=== PATIENT | male | born 1965 | race Caucasian/White ===

== ENCOUNTER 2017-02-16 14:04 | Inpatient (IN) | payer BC, MEDICAID ==
[~2017-02-16] VITALS: Ht 182.9 cm; Wt 155.0 kg
[2017-02-16] MEDS ORDERED: ASPI1TAB PO (14:20)
[2017-02-16 15:38] LABS: MEAN CORPUSCULAR HEMOGLOBIN 31.1 pg (27.0-33.0); MEAN CORPUSCULAR HGB CONC 36.1 g/dl (32.0-36.5); MEAN CORPUSCULAR VOLUME 86.2 fl (80.0-96.0); RED CELL DISTRIBUTION WIDTH 13.6 % (11.5-14.5)
[2017-02-16 16:12] LABS: ALBUMIN 3.7 GM/DL (3.2-5.2); ALBUMIN/GLOBULIN RATIO 1.16 (1.00-1.93); ALKALINE PHOSPHATASE 120 U/L (45-117); ALT/SGPT 36 U/L (12-78); ANION GAP 10 MEQ/L (8-16); AST/SGOT 21 U/L (15-37); BILIRUBIN,DIRECT 0.2 MG/DL (0.0-0.2); BILIRUBIN,TOTAL 0.8 MG/DL (0.2-1.0); BLOOD UREA NITROGEN 18 MG/DL (7-18); CARBON DIOXIDE LEVEL 24 MEQ/L (21-32); CHLORIDE LEVEL 105 MEQ/L (98-107); CREATININE FOR GFR 1.05 MG/DL (0.70-1.30); GLOMERULAR FILTRATION RATE > 60.0 (>56); GLUCOSE, FASTING 89 MG/DL (70-105); POTASSIUM SERUM 3.9 MEQ/L (3.5-5.1); SODIUM LEVEL 139 MEQ/L (136-145); TOTAL PROTEIN 6.9 GM/DL (6.4-8.2)
[2017-02-16] MEDS ORDERED: HYDR25TAB PO (16:41)
[2017-02-16] MEDS ORDERED: LISI40TAB PO (16:41)
[2017-02-16] MEDS ORDERED: ATOR40TA PO (16:41)
[2017-02-16] MEDS ORDERED: BUPR75TA5 PO (16:41)
[2017-02-16] MEDS ORDERED: FLOM5CAP PO (16:41)
[2017-02-16 16:54] LABS: METHADONE URINE NEGATIVE (NEGATIVE)
[2017-02-16] MEDS ORDERED: BUPR150T3 PO (17:41)
[2017-02-16] MEDS ORDERED: ZYRT10TA2 PO (17:41)
[2017-02-16] MEDS ORDERED: ACETAMINOPHEN 325 MG TAB PO ONE (18:30)
[2017-02-16] MEDS ORDERED: OLANZapine ORAL DISINTEGRATING TAB 5MG PO PRN (19:15)
[2017-02-16] MEDS ORDERED: traZODone 50 MG TAB PO PRN (19:15)
[2017-02-16] MEDS ORDERED: ACETAMINOPHEN TAB 650MG DOSE (2X325MG) PO PRN (19:15)
[2017-02-16] MEDS ORDERED: MOM 30ML SUSPENSION UDC PO PRN (19:15)
[2017-02-16] MEDS ORDERED: MAALOX 30 ML SUSP *UDC PO PRN (19:15)
[2017-02-16] MEDS ORDERED: LISINOPRIL 40 MG TAB PO ONE (19:45)
[2017-02-16 20:35] VITALS: BP 150/98
[2017-02-16] MEDS ORDERED: CETIRIZINE (ZyrTEC) 10 MG TAB PO PRN (21:30)
[2017-02-17 06:17] VITALS: BP 142/69
[2017-02-17] MEDS ORDERED: buPROPion **XL** TABLET 150MG (WELLBUTRIN XL) PO SCH (09:00)
[2017-02-17] MEDS ORDERED: NAPROXEN 250 MG TAB PO PRN (09:15)
[2017-02-17] MEDS: hydroCHLOROthiazide 25 MG TAB PO SCH (09:56)
[2017-02-17] MEDS: LISINOPRIL 40 MG TAB PO SCH (09:56)
[2017-02-17] MEDS: TAMSULOSIN 0.4 MG CAP PO SCH (09:56)
[2017-02-17] MEDS: ASPIRIN 81 MG ENTERIC TAB PO SCH (09:56)
[2017-02-17] MEDS: ATORVASTATIN 20 MG TAB PO SCH (09:56)
[2017-02-17] MEDS: SERTRALINE HCL 50 MG TAB PO SCH (13:09)
[2017-02-17 18:35] VITALS: BP 120/56
[2017-02-18 06:27] VITALS: BP 143/80
[2017-02-18] MEDS: TAMSULOSIN 0.4 MG CAP PO SCH (08:46)
[2017-02-18] MEDS: ATORVASTATIN 20 MG TAB PO SCH (08:46)
[2017-02-18] MEDS: ASPIRIN 81 MG ENTERIC TAB PO SCH (08:46)
[2017-02-18] MEDS: SERTRALINE HCL 50 MG TAB PO SCH (08:46)
[2017-02-18] MEDS: hydroCHLOROthiazide 25 MG TAB PO SCH (08:46)
[2017-02-18 08:48] VITALS: BP 106/53
[2017-02-18] MEDS: LISINOPRIL 40 MG TAB PO SCH (08:48)
[2017-02-18 18:23] VITALS: BP 160/77
[2017-02-18] MEDS ORDERED: RAMELTEON 8 MG TAB (ROZEREM) PO SCH (21:00)
[2017-02-19 06:00] VITALS: BP 148/83
[2017-02-19] MEDS: TAMSULOSIN 0.4 MG CAP PO SCH (09:08)
[2017-02-19] MEDS: SERTRALINE HCL 50 MG TAB PO SCH (09:09)
[2017-02-19] MEDS: hydroCHLOROthiazide 25 MG TAB PO SCH (09:09)
[2017-02-19] MEDS: ATORVASTATIN 20 MG TAB PO SCH (09:10)
[2017-02-19] MEDS: ASPIRIN 81 MG ENTERIC TAB PO SCH (09:10)
[2017-02-19] MEDS: LISINOPRIL 40 MG TAB PO SCH (09:10)
[2017-02-19 18:00] VITALS: BP 133/59
[2017-02-19] MEDS ORDERED: traZODone 50 MG TAB PO SCH (21:00)
[2017-02-20 06:00] VITALS: BP 118/66
[2017-02-20] MEDS: LISINOPRIL 40 MG TAB PO SCH (09:26)
[2017-02-20] MEDS: SERTRALINE HCL 50 MG TAB PO SCH (09:26)
[2017-02-20] MEDS: TAMSULOSIN 0.4 MG CAP PO SCH (09:26)
[2017-02-20] MEDS: ASPIRIN 81 MG ENTERIC TAB PO SCH (09:26)
[2017-02-20] MEDS: ATORVASTATIN 20 MG TAB PO SCH (09:26)
[2017-02-20] MEDS: hydroCHLOROthiazide 25 MG TAB PO SCH (09:26)
[2017-02-20 18:00] VITALS: BP 117/56
[2017-02-20] MEDS: traZODone 100 MG TAB PO SCH (22:38)
[2017-02-21 06:36] VITALS: BP 122/58
[2017-02-21] MEDS: SERTRALINE HCL 50 MG TAB PO SCH (08:44)
[2017-02-21] MEDS: LISINOPRIL 40 MG TAB PO SCH (08:44)
[2017-02-21] MEDS: TAMSULOSIN 0.4 MG CAP PO SCH (08:44)
[2017-02-21] MEDS: hydroCHLOROthiazide 25 MG TAB PO SCH (08:44)
[2017-02-21 08:46] VITALS: BP 108/54
[2017-02-21] MEDS: ASPIRIN 81 MG ENTERIC TAB PO SCH (09:29)
[2017-02-21] MEDS: ATORVASTATIN 20 MG TAB PO SCH (09:30)
[2017-02-21 18:32] VITALS: BP 110/70
[2017-02-21] MEDS: traZODone 100 MG TAB PO SCH (23:33)
[2017-02-22 06:22] VITALS: BP 136/70
[2017-02-22] MEDS: ASPIRIN 81 MG ENTERIC TAB PO SCH (08:35)
[2017-02-22] MEDS: ATORVASTATIN 20 MG TAB PO SCH (08:35)
[2017-02-22] MEDS: LISINOPRIL 40 MG TAB PO SCH (08:35)
[2017-02-22] MEDS: hydroCHLOROthiazide 25 MG TAB PO SCH (08:35)
[2017-02-22] MEDS: SERTRALINE HCL 50 MG TAB PO SCH (08:35)
[2017-02-22] MEDS: TAMSULOSIN 0.4 MG CAP PO SCH (08:35)
[2017-02-22 08:40] VITALS: BP 118/60
[2017-02-22 18:00] VITALS: BP 130/62
[2017-02-22] MEDS: traZODone 100 MG TAB PO SCH (23:04)
[2017-02-23 07:21] VITALS: BP 158/75
[2017-02-23] MEDS: ASPIRIN 81 MG ENTERIC TAB PO SCH (09:20)
[2017-02-23] MEDS: SERTRALINE HCL 50 MG TAB PO SCH (09:20)
[2017-02-23] MEDS: hydroCHLOROthiazide 25 MG TAB PO SCH (09:20)
[2017-02-23] MEDS: ATORVASTATIN 20 MG TAB PO SCH (09:20)
[2017-02-23] MEDS: TAMSULOSIN 0.4 MG CAP PO SCH (09:20)
[2017-02-23] MEDS: LISINOPRIL 40 MG TAB PO SCH (09:20)
[2017-02-23] MEDS ORDERED: SERT50TA PO (09:46)
[2017-02-23] MEDS ORDERED: OLAN5ZYD PO (09:46)
[2017-02-23] MEDS ORDERED: TRAZ10TA PO (09:46)
[2017-02-23] MEDS ORDERED: NAPR250T45 PO (09:46)
== END 2017-02-23 14:55 | disposition home or self-care (01) | DRG 751 ==
LOC: M ED 15:48 → M ED INP 19:12 → M PSY 20:25
PROVIDERS: ADMIT Psychiatry & Neurology Psychiatry; ATTEND Psychiatry & Neurology Psychiatry
DX: F33.2 Major depressive disorder, recurrent severe without psychotic features (principal); Z68.42 Body mass index [BMI] 45.0-49.9, adult; I10 Essential (primary) hypertension; F41.9 Anxiety disorder, unspecified; F10.21 Alcohol dependence, in remission; E78.5 Hyperlipidemia, unspecified; N40.0 Benign prostatic hyperplasia without lower urinary tract symptoms; J30.9 Allergic rhinitis, unspecified; E66.9 Obesity, unspecified; M54.5 Low back pain; M25.571 Pain in right ankle and joints of right foot; M25.572 Pain in left ankle and joints of left foot; Z87.891 Personal history of nicotine dependence; Z79.899 Other long term (current) drug therapy; Z79.82 Long term (current) use of aspirin